=== PATIENT | male | born 1960 | race Caucasian/White ===

== ENCOUNTER → 2016-09-09 | Outpatient (CLI) | payer OTHER | LOC: KOH-I 09:37 | DX: N28.89 Other specified disorders of kidney and ureter (principal); N32.89 Other specified disorders of bladder; N28.1 Cyst of kidney, acquired | CPT/HCPCS: 74178; Q9963 ==

== ENCOUNTER 2020-09-10 11:32 | Emergency (ER) | payer OTHER ==
[~2020-09-10 11:32] MED LIST: AUGMENTIN 875-1 EACH PO; FLEXERIL 5 MG PO; IBUPROFEN600 MG PO; IBUPROFEN800 MG PO; INDOCIN 50 MG C50 MG PO; KEFLEX500 MG PO; NORCO 5-325 TA1 EACH PO; PERCOCET 5-3251 EACH PO; PERCOCET 5/325 T1 EA PO; PREDNISONE 50 M50 MG PO; VISTARIL25 MG PO; Voltaren Gel 1 % TOP
[2020-09-10] MEDS ORDERED: HYDROCODON-ACE1 EAC4 PO (14:44)
== END 2020-09-10 15:20 | disposition home or self-care (01) ==
LOC: ER1 11:32
DX: S80.02XA Contusion of left knee, initial encounter (principal); S70.02XA Contusion of left hip, initial encounter; I10 Essential (primary) hypertension; W19.XXXA Unspecified fall, initial encounter
CPT/HCPCS: 73502; 73552; 73564; 99283

== ENCOUNTER → 2020-12-24 | Outpatient (CLI) | payer OTHER ==
[~2020-12-24] MED LIST changes: +CENTRUM SILVER1 EAC1 PO; +CLINDAMYCIN HC300 MG PO; +HYDROCODON-ACE1 EAC4 PO; +LEVOFLOXACIN500 MG PO; +LISINOPRIL-HCT1 EACH PO; +METOPROLOL SUCC50 MG PO; +PROBIOTIC1 EACH PO; +ST. JOSEPH ASPI81 M1 PO
[2020-12-24 13:52] LABS: HEMOGLOBIN 16.1 gm/dl (14.0-17.5); RED BLOOD COUNT 4.74 M/UL (4.20-5.50)
[2020-12-24 14:26] LABS: BUN/CREATININE RATIO 23 (0-10)
== END ==
LOC: LAB 13:08
PROVIDERS: Internal Medicine Cardiovascular Disease
DX: I11.9 Hypertensive heart disease without heart failure (principal); I49.5 Sick sinus syndrome; Z45.010 Encounter for checking and testing of cardiac pacemaker pulse generator [battery]
CPT/HCPCS: 36415; 71046; 80048; 85025

== ENCOUNTER → 2020-12-27 | Outpatient (CLI) | payer OTHER | LOC: CATH 07:10 | DX: Z45.010 Encounter for checking and testing of cardiac pacemaker pulse generator [battery] (principal); I49.5 Sick sinus syndrome; I10 Essential (primary) hypertension; Z79.82 Long term (current) use of aspirin; Z79.899 Other long term (current) drug therapy; Z98.890 Other specified postprocedural states; Z87.891 Personal history of nicotine dependence; Z82.49 Family history of ischemic heart disease and other diseases of the circulatory system | CPT/HCPCS: 33213; 99152; 99153; C1785; J2250; J3010; J3370; J7040; J7050 ==

== ENCOUNTER → 2021-04-22 | Outpatient (CLI) | payer OTHER ==
[2021-04-22 09:40] LABS: HEMOGLOBIN 15.4 gm/dl (14.0-17.5); RED BLOOD COUNT 4.8 M/UL (4.20-5.50); WHITE BLOOD COUNT 4.6 K/UL (4.5-11.0)
[2021-04-22 10:08] LABS: BUN/CREATININE RATIO 30 (0-10)
== END ==
LOC: LAB 09:17
DX: Z51.81 Encounter for therapeutic drug level monitoring (principal); K74.69 Other cirrhosis of liver
CPT/HCPCS: 36415; 80053; 85027; 85610

== ENCOUNTER → 2021-04-22 | Outpatient (CLI) | payer OTHER | LOC: EXRD 08:00 | DX: K74.69 Other cirrhosis of liver (principal); N28.9 Disorder of kidney and ureter, unspecified | CPT/HCPCS: 76705 ==

== ENCOUNTER → 2021-10-21 | Outpatient (CLI) | payer MEDICARE ==
[2021-10-21 10:43] LABS: HEMOGLOBIN 15.9 gm/dl (14.0-17.5); RED BLOOD COUNT 4.75 M/UL (4.20-5.50); WHITE BLOOD COUNT 4.2 K/UL (4.5-11.0)
[2021-10-21 11:18] LABS: BUN/CREATININE RATIO 31 (0-10)
== END ==
LOC: US 09:55
DX: K74.69 Other cirrhosis of liver (principal)
CPT/HCPCS: 36415; 76705; 80053; 85027; 85610